=== PATIENT | male | born 2000 | race Caucasian/White ===

== ENCOUNTER 2023-02-05 08:13 | Emergency (ER) | payer OTHER, SELFPAY ==
[2023-02-05 08:17] VITALS: BP 178/89; PULSE 77; RESP 16; TEMP 36.4; O2SAT 99; BMI 25.1
--- NOTE | 2023-02-05 08:39 | ED_ITS ---
HPI - Abdominal Pain General Chief Complaint: Abdominal Pain Stated Complaint: abd pain / flank pain Time Seen by Provider: 02/05/23 08:26 Source: patient Mode of arrival: walk-in Limitations: no limitations History of Present Illness HPI narrative: RLQ abdominal pain began yesterday with nausea starting the day before. Pain is non-radiating. No fever or chills. No urinary symptoms. Related Data Previous Rx's Medication Instructions Recorded hyoscyamine sulfate 0.125 mg 0.125 mg PO Q6H PRN abdominal pain 02/05/23 sublingual tablet (Levsin/SL) #20 tabs ondansetron 4 mg disintegrating 4 mg PO Q6H PRN nausea #20 tabs 02/05/23 tablet Allergies Allergy/AdvReac Type Severity Reaction Status Date / Time No Known Drug Allergies Allergy Verified 02/05/23 08:19 PFSH PFSH Social History Smoking status: Former smoker Exam Narrative Exam Narrative: Nurses notes and vital signs reviewed and patient is not hypoxic. afebrile General: Well-appearing and in no apparent distress. Skin: Warm, dry, no pallor noted. No rash. Head: Normocephalic, atraumatic. Eye: Pupils are equal, round and EOMI. No scleral icterus. Cardiovascular: Regular Rate and Rhythm without murmur, gallop or rub. Respiratory: No accessory muscle use or respiratory distress. Lungs are clear to auscultation, no wheezing, rales or rhonchi Back: No CVA tenderness Musculoskeletal: normal ROM GI: Abdomen is soft, non-distended. Normal bowel sounds. No masses appreciated. Focal RLQ tenderness to palpation. Positive Rovsing's. No rebound, guarding, or rigidity noted. Neurological: A&O x4. No cranial nerve dysfunction observed. No truncal ataxia. Moves all extremities. Sensation intact. Psychiatric: Cooperative and interactive. Normal mood and affect. Constitutional Vital Signs, click to edit/add: Last Vital Signs Temp 97.6 F 02/05/23 08:17 Pulse 91 H 02/05/23 09:20 Resp 16 02/05/23 09:20 BP 122/78 02/05/23 09:20 Pulse Ox 99 02/05/23 09:20 O2 Del Method Room Air 02/05/23 09:20 Course Vital Signs Vital signs: Vital Signs Temperature 97.6 F 02/05/23 08:17 Pulse Rate 77 02/05/23 08:17 Respiratory Rate 16 02/05/23 08:17 Blood Pressure 178/89 H 02/05/23 08:17 Pulse Oximetry 99 02/05/23 08:17 Oxygen Delivery Method Room Air 02/05/23 08:17 Temperature 97.6 F 02/05/23 08:17 Pulse Rate 91 H 02/05/23 09:20 Respiratory Rate 16 02/05/23 09:20 Blood Pressure 122/78 02/05/23 09:20 Pulse Oximetry 99 02/05/23 09:20 Oxygen Delivery Method Room Air 02/05/23 09:20 MDM - Abdominal Pain MDM Narrative Medical decision making narrative: peripheral iv established and blood drawn and sent for testing. Labs normal. CT does not show evidence of acute appendicitis or any other abnormalities to account for the patient's pain. His nausea improved after ED treatment. He was given Levsin for the pain and prescribed Levsin and Zofran to take at home. Lab Data Attestation: I reviewed the patient's lab results. Labs: Lab Results 02/05/23 Range/Units 08:25 WBC 5.3 (4.0-11.0) 10^3/uL RBC 5.03 (4.70-6.10) 10^6/uL Hgb 14.7 (14.0-18.0) g/dL Hct 42.8 (42.0-54.0) % MCV 85.1 (80.0-94.0) fL MCH 29.2 (25.9-34.0) pg MCHC 34.3 (29.9-35.2) g/dL RDW 12.2 (11.0-15.0) % Plt Count 250 (150-450) 10^3/uL MPV 10.2 (9.5-13.5) fL Neut % (Auto) 45.4 (43.0-75.0) % Lymph % (Auto) 41.1 (20.5-60.0) % Colbert % (Auto) 6.0 (1.7-12.0) % Eos % (Auto) 6.0 (0.9-7.0) % Baso % (Auto) 1.3 (0.2-2.0) % Neut # (Auto) 2.4 (1.4-6.5) 10^3/uL Lymph # (Auto) 2.2 (1.2-3.8) 10^3/uL Colbert # (Auto) 0.3 (0.3-0.8) 10^3/uL Eos # (Auto) 0.3 (0.0-0.7) 10^3/uL Baso # (Auto) 0.1 (0.0-0.1) 10^3/uL Abs Immat Gran (auto) 0.01 (0.00-0.03) 10^3/uL Imm/Tot Granulo (auto) 0.2 (0.0-0.5) % Sodium 139 (136-145) mmol/L Potassium 4.2 (3.5-5.1) mmol/L Chloride 104 (98-107) mmol/L Carbon Dioxide 31.6 (21.0-32.0) mmol/L Anion Gap 7.6 BUN 16.0 (7.0-18.0) mg/dL Creatinine 1.02 (0.70-1.30) mg/dL Est GFR ( Amer) >60 (>=60) Est GFR (Non-Af Amer) >60 (>=60) BUN/Creatinine Ratio 15.7 Glucose 100 (74-106) mg/dL Calcium 9.1 (8.5-10.1) mg/dL Total Bilirubin 0.8 (0.2-1.0) mg/dL Direct Bilirubin 0.2 (0.0-0.2) mg/dL AST 18 (15-37) U/L ALT 28 (16-63) U/L Alkaline Phosphatase 57 (46-116) U/L Total Protein 7.3 (6.4-8.2) g/dL Albumin 4.0 (3.4-5.0) g/dL Globulin 3.3 g/dL Albumin/Globulin Ratio 1.[address] scan - abdomen: Radiologist's impression: Patient Name: DANTE HENDRIX MRN: [id number] date: 2000 Sex: M Assigned Patient Location: ER Current Patient Location: ER Accession/Order Number: [id number] Exam Date: 02/05/2023 09:11 Report Date: 02/05/2023 09:40 At the request of: ANNABEL SILVERIO Procedure: CT abdomen pelvis w con CT abdomen pelvis w con, 02/05/2023 9:11 AM EDT INDICATION: RLQ abdominal pain. COMPARISON: No prior CT scan of the abdomen and pelvis available for comparison. TECHNIQUE: Axial images of the abdomen and pelvis were obtained after the administration of IV contrast. Multiplanar reformatted images were generated and reviewed as needed. Dose reduction techniques were achieved by using automated exposure control and/or adjustment of mA and/or kV according to patient size and/or use of iterative reconstruction technique. FINDINGS: No consolidation or effusion. The liver, gallbladder, pancreas, spleen and adrenals are unremarkable. Symmetric nephrograms without evidence of obstruction. No urolithiasis. No urinary bladder wall thickening or perivesicular fat stranding. No aortic aneurysm. No bowel obstruction or acute focal inflammation. Normal appendix. No pneumatosis, pneumoperitoneum or ascites. No mesenteric or retroperitoneal lymphadenopathy. No acute fracture or dislocation. Benign sclerotic foci right superior pubic ramus and femur. IMPRESSION: No acute findings. Normal appendix. Electronically authenticated by: IAN BREWSTER Date: 02/05/2023 09:40 Discharge Plan Discharge Chief Complaint: Abdominal Pain Clinical Impression: Abdominal pain Patient Disposition: Home, Self-Care Time of Disposition Decision: 10:17 Prescriptions / Home Meds: New hyoscyamine sulfate [Levsin/SL] 0.125 mg tablet, sublingual 0.125 mg PO Q6H PRN (Reason: abdominal pain) Qty: 20 0RF ondansetron 4 mg tablet,disintegrating 4 mg PO Q6H PRN (Reason: nausea) Qty: 20 0RF Instructions: Abdominal Pain (ED) Stand Alone Forms: Portal Instructions Referrals: KRISTEN EDOUARD [Primary Care Provider] - 1 week
[2023-02-05] MEDS: ONDANSETRON PF 4 MG/2 ML VIAL IV (08:49)
[2023-02-05] MEDS: 0.9 % SODIUM CHLORIDE 1,000 ML 999 ML IV (08:49)
[2023-02-05 09:02] LABS: Basophils Absolute Auto 0.1 10^3/uL (0.0-0.1); Basophils Percent Auto 1.3 % (0.2-2.0); Eosinophils Absolute Auto 0.3 10^3/uL (0.0-0.7); Hematocrit 42.8 % (42.0-54.0); Hemoglobin 14.7 g/dL (14.0-18.0); Immature Granulocytes Abs Auto 0.01 10^3/uL (0.00-0.03); Immature Granulocytes Pct Auto 0.2 % (0.0-0.5); Lymphocytes Absolute Auto 2.2 10^3/uL (1.2-3.8); Lymphocytes Percent Auto 41.1 % (20.5-60.0); Mean Corpuscular HGB Conc 34.3 g/dL (29.9-35.2); Mean Corpuscular Hemoglobin 29.2 pg (25.9-34.0); Mean Corpuscular Volume 85.1 fL (80.0-94.0); Mean Platelet Volume 10.2 fL (9.5-13.5); Monocytes Absolute Auto 0.3 10^3/uL (0.3-0.8); Neutrophils Absolute Auto 2.4 10^3/uL (1.4-6.5); Neutrophils Percent Auto 45.4 % (43.0-75.0); Platelet Count 250 10^3/uL (150-450); Red Blood Count 5.03 10^6/uL (4.70-6.10); Red Cell Distribution Width 12.2 % (11.0-15.0); White Blood Count 5.3 10^3/uL (4.0-11.0)
[2023-02-05 09:15] LABS: Alanine Aminotransferase 28 U/L (16-63); Albumin Globulin Ratio 1.2; Alkaline Phosphatase 57 U/L (46-116); Anion Gap 7.6; Aspartate Amino Transferase 18 U/L (15-37); BUN Creatinine Ratio 15.7; Bilirubin Direct 0.2 mg/dL (0.0-0.2); Bilirubin Total 0.8 mg/dL (0.2-1.0); Calcium 9.1 mg/dL (8.5-10.1); Carbon Dioxide 31.6 mmol/L (21.0-32.0); Chloride 104 mmol/L (98-107); Estimated GFR (African America >60 (>=60); Estimated GFR (Non-African Ame >60 (>=60); Globulin 3.3 g/dL; Glucose 100 mg/dL (74-106); Potassium 4.2 mmol/L (3.5-5.1); Sodium 139 mmol/L (136-145); Total Protein 7.3 g/dL (6.4-8.2)
[2023-02-05 09:20] VITALS: BP 122/78; PULSE 91; RESP 16; O2SAT 99
[2023-02-05] MEDS: HYOSCYAMINE SULFATE 0.125 MG TAB.SUBL PO (10:30)
[2023-02-05 10:36] VITALS: BP 146/65; PULSE 61; RESP 16; O2SAT 99
== END 2023-02-05 10:39 | disposition home or self-care (01) ==
PROVIDERS: Emergency Provider Emergency Medicine; PCP Family Medicine
DX: R10.9 Unspecified abdominal pain (principal); Z87.891 Personal history of nicotine dependence
CPT/HCPCS: 36415; 74177; 80053; 80076; 85025; 96374; 99285; Q9967

== ENCOUNTER 2025-02-01 14:49 | Outpatient (OUT) | payer OTHER, SELFPAY ==
[2025-02-01 15:42] LABS: Hematocrit 43.8 % (42.0-54.0); Hemoglobin 15.1 g/dL (14.0-18.0); Immature Granulocytes Abs Auto 0.02 10^3/uL (0.00-0.03); Immature Granulocytes Pct Auto 0.3 % (0.0-0.5); Lymphocytes Absolute Auto 2.5 10^3/uL (1.2-3.8); Mean Corpuscular HGB Conc 34.5 g/dL (29.9-35.2); Mean Corpuscular Hemoglobin 28.9 pg (25.9-34.0); Mean Corpuscular Volume 83.7 fL (80.0-94.0); Platelet Count 332 10^3/uL (150-450); Red Blood Count 5.23 10^6/uL (4.70-6.10); White Blood Count 7.3 10^3/uL (4.0-11.0)
[2025-02-01 16:07] LABS: Alanine Aminotransferase 25 U/L (16-63); Albumin Level 4.6 g/dL (3.4-5.0); Alkaline Phosphatase 74 U/L (46-116); Anion Gap 13.8; Aspartate Amino Transferase 19 U/L (15-37); Blood Urea Nitrogen 15.0 mg/dL (7.0-18.0); Calcium 9.5 mg/dL (8.5-10.1); Carbon Dioxide 27.9 mmol/L (21.0-32.0); Chloride 102 mmol/L (98-107); Estimated GFR (African America >60 (>=60 mL/min/1.73m^2); Estimated GFR (Non-African Ame >60 (>=60 mL/min/1.73m^2); Globulin 3.8 g/dL; Glucose 88 mg/dL (74-106); Potassium 3.7 mmol/L (3.5-5.1); Sodium 140 mmol/L (136-145); Total Protein 8.4 g/dL (6.4-8.2)
[2025-02-01 16:08] LABS: Albumin Globulin Ratio 1.2; Cholesterol 186 mg/dL (<=200); HDL Cholesterol 68 mg/dL (40-60); Triglycerides 52 mg/dL (<=150); VLDL CHOLESTEROL 10.4 mg/dL
[2025-02-02 13:11] LABS: Rapid Plasma Reagin, Quant 1:1 titer (NonRea<1:1)
[2025-02-02 21:08] LABS: Neisseria gonorrhoeae, NAA Negative (Negative)
[2025-02-04 15:07] LABS: HSV-1 DNA Negative (Negative); HSV-2 DNA Negative (Negative)
== END 2025-02-01 14:50 | disposition home or self-care (01) ==
LOC: LAB 14:53
PROVIDERS: PCP Family Medicine; Visit Provider Family Medicine
DX: Z00.00 Encounter for general adult medical examination without abnormal findings (principal); Z12.5 Encounter for screening for malignant neoplasm of prostate
CPT/HCPCS: 36415; 80053; 80061; 80074; 83036; 84403; 85025; 86592; 87389; 87491; 87529; 87591; G0103

== ENCOUNTER 2025-02-09 12:50 | Outpatient (OUT) | payer OTHER, SELFPAY ==
--- OUTSIDE RECORDS SUMMARY | 2025-02-02 12:19 | XMS_ITS ---
Author Organization The [facility] in [place] Address [address] [place] [address] Care Team Providers Care Health Administration Teacher Name Role Phone Nas Truong Primary Care Provider [phone] REASON FOR VISIT lab Encounters Encounter Location Date Provider Diagnosis [facility] [address] [place] [address] 02/02/2025 Nas Truong Encounter for screen ing for infections with a predominantly sexual mode of transmission Z11.3 Assessments Encounter Date Diagnosis (ICD Code) Assessment Notes Treatment Notes Treatment Clinical Notes Section Notes 02/02/2025 Encounter for screening for infections with a predominantly sexual mode of transmission (ICD-10 - Z11.3) Plan Of Treatment No Information Progress Notes * Minal URIBEOB: (24 yo M)Acc No.[id number]:02/02/2025 Patient: Collin PATEL :2000 A ge:24 Y S ex:Male Address:[address] [place] [address] Subjective: * Chief Complaints: * L ab * Medical History: * Surgical History: * Hospitalization/Major Diagno stic Procedure: * Medications: Objective: * Vitals: * Physical Examination: Assessment: * Assessment: 1. E ncounter for screening for infections with a predominantly sexual mode of transmission - Z11.3 (Primary) Plan: * Treatment: * Procedure Codes: * true * Date: Generated for Lesli palacios/Lena/Keke on: 0 02/09/2025 12:54 PM EDT
--- OUTSIDE RECORDS SUMMARY | 2025-02-03 10:12 | XMS_ITS ---
Author Organization The [facility] in [place] Address [address] [place] [address] Care Team Providers Care Aircraft Engine Mechanic Name Role Phone Nas Truong Primary Care Provider Encounters Encounter Location Date Provider Diagnosis [facility] [address] [facility] [place] [address] 02/03/2025 Nas Truong Encounter for scree mireya for infections with a predominantly sexual mode of transmission Z11.3 Assessments Encounter Date Diagnosis (ICD Code) Assessment Notes Treatment Notes Treatment Clinical Notes Section Notes 02/03/2025 Encounter for screening for infections with a predominantly sexual mode of transmission (ICD-10 - Z11.3) Plan Of Treatment Pending Test Test Name Order Date SYPHILIS TEST 02/03/2025 Progress Notes * Minal URIBEOB: (24 yo M)Acc No.[id number]:02/03/2025 Patient: Collin PATEL :2000 A ge:24 Y S ex:Male Address:[address] [place], [place] [address], [address] Subjective: * Chief Complaints: * * Medical History: * Surgical History: * Hospitalization/Major Diagno stic Procedure: * Medications: Objective: * Vitals: * Physical Examination: Assessment: * Assessment: 1. E ncounter for screening for infections with a predominantly sexual mode of transmission - Z11.3 (Primary) Plan: * Treatment: ?LAB: SYPHILIS ABS TEST (Order Cancelled) * Procedure Codes: * true * Date: Generated for Lesli palacios/Lena/Keke on: 0 02/09/2025 12:54 PM EDT
--- OUTSIDE RECORDS SUMMARY | 2025-02-08 10:29 | XMS_ITS ---
Author Organization The [facility] in [place] Address [address] [place] [address] Care Team Providers Care Creative Services Manager Name Role Phone Nas Truong Primary Care Provider REASON FOR VISIT positive testing Encounters Encounter Location Date Provider Diagnosis [facility] [address] [place] [address] 02/08/2025 Nas Truong Plan Of Treatment No Information Progress Notes * THEO GumaroMarlenyOB: (24 yo M)Acc No.[id number]:02/08/2025 Patient: Collin PATEL :2000 A ge:24 Y S ex:Male Address:[address] [place] [address] * true * Date: Generated for Printi ng/Fatutug/eTransmitting on: 0 02/09/2025 12:54 PM EDT
--- OUTSIDE RECORDS SUMMARY | 2025-02-09 12:54 | XMS_ITS | Patient Health Record ---
Author Organization The [facility] in [place] Address [address] [place] [address] Care Team Providers Care Guest Advisor Name Role Phone Nas Truong Primary Care Provider [phone] Allergies No Known Allergies Results Component Value Reference Range Notes CBC AUTO DIFF Reviewed date:02/01/2025 06:26:56 PM Interpretation: Performing Lab: Notes/Report: [facility] , White Blood Count 7.3 4.0-11.0 10 3/uL Red Blood Count 5.23 4.70-6.10 10 6/uL Hemoglobin 15.1 14.0-18.0 g/dL Hematocrit 43.8 42.0-54.0 % Mean Corpuscular Volume 83.7 80.0-94.0 fL Mean Corpuscular Hemoglobin 28.9 25.9-34.0 pg Mean Corpuscular HGB Conc 34.5 29.9-35.2 g/dL Red Cell Distribution Width 12.0 11.0-15.0 % Platelet Count 332 150-450 10 3/uL Mean Platelet Volume 10.9 9.5-13.5 fL Neutrophils Percent Auto 55.2 43.0-75.0 % Lymphocytes Percent Auto 34.5 20.5-60.0 % Monocytes Percent Auto 4.4 1.7-12.0 % Eosinophils Percent Auto 4.2 0.9-7.0 % Basophils Percent Auto 1.4 0.2-2.0 % Immature Granulocytes Pct Auto 0.3 0.0-0.5 % Neutrophils Absolute Auto 4.1 1.4-6.5 10 3/uL Lymphocytes Absolute Auto 2.5 1.2-3.8 10 3/uL Monocytes Absolute Auto 0.3 0.3-0.8 10 3/uL Eosinophils Absolute Auto 0.3 0.0-0.7 10 3/uL Basophils Absolute Auto 0.1 0.0-0.1 10 3/uL Immature Granulocytes Abs Auto 0.02 0.00-0.03 10 3/uL Performing Lab: see note ML - [facility] LB GLYCOHEMOGLOBIN A1C Reviewed date:02/01/2025 06:26:56 PM Interpretation: Performing Lab: Notes/Report: [facility] , Glycohemoglobin A1C 4.9 4.5-6.2 % > 7.0 ACTION SUGGESTED ADA RECOMMENDED LIMIT 4.0 - 6.0 ADA THERAPEUTIC TARGET < 7.0 Estimated Average Glucose 94 Performing Lab: see note [facility] HERPES SIMPLEX VIRUS 1 or 2 DNA PCR Reviewed date:02/06/2025 01:58:01 PM Interpretation: Performing Lab: Notes/Report: [facility] , HSV-1 DNA Negative Negative This test was developed and its performance characteristics determined by [facility]. It has not been cleared or approved by the Food and Drug Administration. HSV-2 DNA Negative Negative Ic Designer Custom: Mag Velasquez MD, Phone: [phone] This test was developed and its performance characteristics determined by [facility]. It has not been cleared or Performed at: [facility] approved by the Food and Drug Administration. [address] [place] [phone] Performing Lab: see note [facility] LIPID PROFILE Reviewed date:02/01/2025 06:26:56 PM Interpretation: Performing Lab: Notes/Report: [facility] , Triglycerides 52 <=150 mg/dL Cholesterol 186 <=200 mg/dL HDL Cholesterol 68 40-60 mg/dL > or =60 mg/dl - LOW CARDIOVASCULAR RISK <40 mg/dl - HIGH CARDIOVASCULAR RISK LDL Cholesterol Calculated 108.0 >190 mg/dl VERY HIGH 130-159 mg/dl BORDERLINE HIGH 160-189 mg/dl HIGH 100-129 mg/dl NEAR OR ABOVE OPTIMAL <100 mg/dl OPTIMAL VLDL CHOLESTEROL 10.4 Chol HDL Ratio 2.7 4.4 - 7.1 AVERAGE RISK 7.1 - 11.0 MODERATE RISK >11.0 HIGH RISK 3.3 - 4.4 LOW RISK Performing Lab: see note ML - [facility] PROF 14(COMP METB) Reviewed date:02/01/2025 06:26:56 PM Interpretation: Performing Lab: Notes/Report: [facility] , Sodium 140 136-145 mmol/L Potassium 3.7 3.5-5.1 mmol/L Chloride 102 98-107 mmol/L Carbon Dioxide 27.9 21.0-32.0 mmol/L Anion Gap 13.8 Glucose 88 74-106 mg/dL Blood Urea Nitrogen 15.0 7.0-18.0 mg/dL Creatinine 1.03 0.70-1.30 mg/dL Estimated GFR ( Manuela >60 >=60 mL/min/1.73m 2 Estimated GFR (Non- Violetta >60 >=60 mL/min/1.73m 2 BUN Creatinine Ratio 14.6 Calcium 9.5 8.5-10.1 mg/dL Bilirubin Total 0.7 0.2-1.0 mg/dL Aspartate Amino Transferase 19 15-37 U/L Alanine Aminotransferase 25 16-63 U/L Alkaline Phosphatase 74 46-116 U/L Total Protein 8.4 6.4-8.2 g/dL Albumin Level 4.6 3.4-5.0 g/dL Globulin 3.8 Albumin Globulin Ratio 1.2 Performing Lab: see note ML - [facility] PSA SCREENING Reviewed date:02/01/2025 06:26:56 PM Interpretation: Performing Lab: Notes/Report: [facility] , Prostate Specific Antigen Scrn 0.97 <=4.00 ng/mL Performing Lab: see note ML - [facility] Testosterone Reviewed date:02/02/2025 04:22:53 PM Interpretation: Performing Lab: Notes/Report: [facility] , Testosterone 456 264-916 ng/dL Performed at: [facility] [address] [id number]. old. jered Edgar.al. JCEM 2017,102;[id number]. PMID: Ic Designer Custom: Pop Burnett PhD, Phone: [phone] healthy nonobese males (BMI <30) between 19 and 39 years Adult male reference interval is based on a population of Performing Lab: see note [facility] LB HIV Ab/p24 Ag with Reflex Reviewed date:02/02/2025 08:58:51 AM Interpretation: Performing Lab: Notes/Report: [facility] , HIV Ab/p24 Ag Screen Non Reactive Non Reactive Performed at: [facility] HIV-1/HIV-2 antibodies and HIV-1 p24 antigen were NOT HIV Negative Ic Designer Custom: Pop Burnett PhD, Phone: [phone] [address] [place] [phone] detected. There is no laboratory evidence of HIV infection. Performing Lab: see note [facility] LB Rapid Plasma Reagin, Quant Reviewed date:02/02/2025 04:22:53 PM Interpretation: Performing Lab: Notes/Report: [facility] , Rapid Plasma Reagin, Quant 1:1 NonRea<1:1 tit er Performed at: [facility] screening and diagnosis of syphilis. This test is RPR and Confirmatory Treponema pallidum Antibodies [address] [place] [address] [phone] intended for following treatment response in patients being Please Note: This test does not meet current guidelines for treponema-specific assay should be utilized, such as Ic Designer Custom: Pop Burnett PhD, Phone: [phone] treated for syphilis infection. To screen for syphilis Rapid Plasma Reagin (RPR) Test With Reflex to Quantitative infection, a reflex cascade that includes both RPR and a (897008). Treponema pallidum (Syphilis) Screening [place] (172510) or Performing Lab: see note [facility] LB Acute Hepatitis Reviewed date:02/02/2025 08:58:51 AM Interpretation: Performing Lab: Notes/Report: [facility] , Hep A Ab, IgM Negative Negative A negative anti-HAV IgM result suggests no recent or current HAV infection. HBsAg Screen Negative Negative Hep B Core Ab, IgM Negative Negative HCV Ab Non Reactive Non Reactive Interpretation: Comment . Ic Designer Custom: Pop Burnett PhD, Phone: [phone] [address] [place], [place] [phone] individual), or other evidence exists to indicate HCV Not infected with HCV unless early or acute infection is suspected (which may be delayed in an immunocompromised Performed at: CB - [facility] Mario Alberto infection. Performing Lab: see note LC - [facility] LB Chlamydia/GC Amplification Reviewed date:02/03/2025 08:36:21 AM Interpretation: Performing Lab: Notes/Report: URINE [facility] , Chlamydia trachomatis, LATISHA Negative Negative Neisseria gonorrhoeae, LATISHA Negative Negative [address] [place] [phone] Performed at: =[facility] Ic Designer Custom: Parvin Chen MD, Phone: [phone] Performing Lab: see note LC - [facility] LB Reason For Referral No Information Social History Tobacco Use: Social History Observation Description Date Details (start date - stop date) Current Smoker NA - NA Tobacco Control (Standard) Question Answer Notes Tobacco use: Current smoker How often do you smoke cigarettes? Some days, bu t not every day AUDIT-C (Standard) Question Answer Notes Did you have a drink contain ing alcohol in the past year? Yes How often did you have a dri nk containing alcohol in the past year? Never (0 point) How many drinks did you have on a typical day when you were drinking in the past year? 1 or 2 drinks (0 point) How often did you have six o r more drinks on one occasion in the past year? 2 to 4 times a month (2 points) Points 2 Interpretation Negative Problems Problem Type SNOMED Code ICD Code Onset Dates Problem Status W/U Status Risk Notes Problem Well adult (190499333) Well adult (Z00.00) Active confirmed Vital Signs Blood pressure diastolic 82 mm Hg 02/01/2025 Height 5ft 11in in 02/01/2025 Blood pressure systolic 140 mm Hg 02/01/2025 Weight 186.8 lbs 02/01/2025 BMI 26.05 kg/m2 02/01/2025 Encounters Encounter Location Date Provider Diagnosis [facility] [address] [place] [address] 02/02/2025 Nas Truong Encounter for screen ing for infections with a predominantly sexual mode of transmission Z11.3 [facility] [address] [place] [address] 02/03/2025 Nas Truong Encounter for scree mireya for infections with a predominantly sexual mode of transmission Z11.3 [facility] [address] [place] [address] 02/08/2025 Nas Truong [facility] [address] [place] [address] 02/01/2025 Nas Truong Well adult Z00.00 an d Encounter for screening for infections with a predominantly sexual mode of transmission Z11.3 Assessments Encounter Date Diagnosis (ICD Code) Assessment Notes Treatment Notes Treatment Clinical Notes Section Notes 02/01/2025 Well adult (ICD-10 - Z00.00) 02/01/2025 Encounter for screening for infections with a predominantly sexual mode of transmission (ICD-10 - Z11.3) 02/02/2025 Encounter for screening for infections with a predominantly sexual mode of transmission (ICD-10 - Z11.3) 02/03/2025 Encounter for screening for infections with a predominantly sexual mode of transmission (ICD-10 - Z11.3) Plan Of Treatment Pending Test Test Name Order Date HEMOGLOBIN A1C (GLYCO) 02/01/2025 LIPID PANEL (CHOL/TRIG/HDL/LDL) 02/02/20 25 SYPHILIS TEST 02/03/2025 HERPES SIMPLEX 1,2 IGM AB (IFA) 02/02/20 25 CHLAMYDIA AND GC (URINE, VAG, OR SWAB) - IH 02/01/2025 HEPATITIS PANEL, ACUTE 02/01/2025 HIV 1 AND 2 WITH REFLEX 02/01/2025 RPR QUANT 02/01/2025 TESTOSTERONE, TOTAL 02/01/2025 PSA, SCREENING 02/01/2025 CMP (COMP MET MENDOZA) w/eGFR CKD-EPI 2024 CBC WITH DIFF 02/01/2025 Insurance Providers Payer Name Payer Address Payer Phone Subscriber Number Group Number Insured Name Patient Relationship to Insured Coverage Start Date Coverage End Date [employer] [address] MYA RUIZ [id number] Collin Fink Self - patient is the insured
--- OUTSIDE RECORDS SUMMARY | 2025-02-09 12:54 | XMS_ITS | Clinical Summary ---
Author Organization [facility] Address [address] [place] [address] Care Team Providers Care Mass Spectroscopist Name Role Phone Marcelo Stapleton DO Primary Care Provider [phone] Allergies No known active allergies Medications No known medications Social History Tobacco Use Types Packs/Day Years Used Date Smoking Tobacco: Never Smokeless Tobacco: Never Tobacco Cessation:Counseling Given: Not Answered Alcohol Use Standard Drinks/Week Comments Never 0 (1 standard drink = 0.6 oz pur e alcohol) Sex and Gender Information Value Date Recorded Sex Assigned at Not on file Legal Sex Male 9:35 PM EDT Gender Identity Not on file Sexual Orientation Not on file Last Filed Vital Signs Vital Sign Reading Time Taken Comments Blood Pressure 134/88 10/01/2022 12:00 PM EDT Pulse 71 12/07/2023 9:07 AM EDT Temperature 36.6 C (97.8 F) 12/07/2023 9:07 AM EDT Respiratory Rate 18 12/07/2023 9:07 AM EDT Oxygen Saturation 98% 12/07/2023 9:07 AM EDT Inhaled Oxygen Concentration - - Weight 81 kg (178 lb 9.2 oz) 12/07/2023 9:07 AM EDT Height 177.8 cm (5' 10 ) 10/01/2022 12:00 PM EDT Body Mass Index 25.62 10/01/2022 12:00 PM EDT Plan of Treatment Health Maintenance Due Date Last Done Comments Influenza Vaccine (#1) 2025 04/09/2021, 2019 Insurance [employer] Care Teams Mass Spectroscopist Relationship Specialty Start Date End Date Marcelo Stapleton DO [address] [address] PCP - General Family Medicine 12/07/23
--- OUTSIDE RECORDS SUMMARY | 2025-02-09 12:54 | XMS_ITS | Encounter Summary ---
Author Organization [facility] Address [address] [place] [address] Care Team Providers Care Polytechnic Registrar Name Role Phone Wilfrid Duarte DO Primary Care Provider [phone] Marcelo Stapleton DO Primary Care Provider [phone] Encounter Details Date Type Department Care Team (Late st Contact Info) Description 02/05/2023 Orders Only [facility] [address] [facility] [address] [place] [id number] A, Unknown Practice [address] [place], [place] [address] Social History Tobacco Use Types Packs/Day Years Used Date Smoking Tobacco: Never Assessed Sex and Gender Information Value Date Recorded Sex Assigned at Not on file Legal Sex Male 9:35 PM EDT Gender Identity Not on file Sexual Orientation Not on file documented as of this encounter Plan of Treatment Not on file documented as of this encounter Procedures Procedure Name Priority Date/Time Associated Diagnosis Comments CT ABDOMEN & PELVIS WO Routine 02/05/2023 9:51 AM EDT documented in this encounter Results * CT ABDOMEN & PELVIS WO (02/05/2023 9:51 AM EDT) Anatomical Region Laterality Modality Radiographic Zulma ging us Unknown Practice A IMG XR PROCEDURES Final Resul t documented in this encounter Visit Diagnoses Not on filedocumented in this encounter Care Teams Polytechnic Registrar Relationship Specialty Start Date End Date Wilfrid Duarte DO [address] [facility] [address] [place] [address] PCP - General Family Medicine 10/28/22 12/06/23 Marcelo Stapleton DO [address] [facility] [address] [place] [address] PCP - General Family Medicine 12/07/23 documented as of this encounter
--- OUTSIDE RECORDS SUMMARY | 2025-02-09 12:54 | XMS_ITS | Clinical Summary ---
Author Organization [facility] Address [address] [place] [address] Phone Care Team Providers Care Feather Stitcher Name Role Phone Cy Valladares MD Primary Care Provider Tari morrison Social History Tobacco Use Types Packs/Day Years Used Date Smoking Tobacco: Never Assessed Sex and Gender Information Value Date Recorded Sex Assigned at Not on file Legal Sex Male 1:41 PM EST Gender Identity Not on file Sexual Orientation Not on file Plan of Treatment Not on file Care Teams Feather Stitcher Relationship Specialty Start Date End Date Cy Valladares MD PCP - General 12/21/17
== END 2025-02-09 12:51 | disposition home or self-care (01) ==
LOC: LAB 12:51
PROVIDERS: PCP Family Medicine; Visit Provider Family Medicine
DX: Z11.3 Encounter for screening for infections with a predominantly sexual mode of transmission (principal)
CPT/HCPCS: 36415; 86592